=== PATIENT | female | born 1935 | race Caucasian/White ===

== ENCOUNTER → 2016-10-21 | Outpatient (CLI) | payer OTHER | LOC: CAT 12:59 | DX: R10.9 Unspecified abdominal pain (principal); M51.36 Other intervertebral disc degeneration, lumbar region; M51.37 Other intervertebral disc degeneration, lumbosacral region ==

== ENCOUNTER → 2017-04-26 | Outpatient (CLI) | payer OTHER | LOC: ULTRA 07:47 | DX: R10.13 Epigastric pain (principal) ==

== ENCOUNTER → 2018-09-06 | Outpatient (CLI) | payer OTHER | LOC: NUC 08-30 03:42 → RAD 08-30 13:17 → NUC 08-30 13:26 | DX: Z12.31 Encounter for screening mammogram for malignant neoplasm of breast (principal); M81.0 Age-related osteoporosis without current pathological fracture; M85.80 Other specified disorders of bone density and structure, unspecified site ==

== ENCOUNTER → 2019-04-06 | Outpatient (CLI) | payer OTHER | LOC: MRI 13:37 | DX: M47.812 Spondylosis without myelopathy or radiculopathy, cervical region (principal); M43.12 Spondylolisthesis, cervical region; M50.31 Other cervical disc degeneration, high cervical region; M48.02 Spinal stenosis, cervical region; M12.88 Other specific arthropathies, not elsewhere classified, other specified site ==

== ENCOUNTER → 2019-05-03 | Outpatient (CLI) | payer OTHER ==
[~2019-05-03] VITALS: Ht 160 cm; Wt 62.1 kg
[~2019-05-03] MED LIST: ARTHRITIS PAIN650 M3 PO; CYMBALTA30 MG PO; DELSYM COU30 MG/5 M1 PO; DOLOGEN CAPLET1 EACH PO; ENTOCORT EC 3 MG3 MG PO; ESTRACE42.5 GM VAG; IRON325 M1 PO; NEXIUM20 MG PO; NORVASC5 M1 PO; QUALAQUIN324 MG PO; SYSTANE 0.3-0.415 ML OPHTHALMIC; TRAZODONE HCL50 MG PO; VITAMIN B12-FO1 EAC1 PO; VITAMIN D32000 UNI2 PO; VOLTAREN GEL 1100 G2 TOP; ZOCOR20 MG PO; ZYRTEC10 M5 PO
[2019-05-03 10:03] VITALS: BP 158/98
--- NOTE | 2019-05-03 10:42 | NUR ---
Pain Clinic Assessment: 1. History of Osteoarthritis: JOINTS History of Rheumatoid Arthritis: Not Applicable 2. Height: 5 ft. 3 in. 160.0 cm. Weight: 137.0 lb. oz. 62.143 kg. Patient's BMI: 24.3 3. Vital Signs: BP: 158/98 Pulse: 84 Resp: 16 Temp: 02 Sat: 96 ECG Mon: 4. Pain Intensity: 4-5 5. Fall Risk: Dizziness: Y Needs help standing or walking: N Fallen in the last 3 months: N Fall risk comments: 6. Patient on Blood Thinner: None 7. History of Hypertension: Y 8. Opioid Therapy greater than 6 weeks: N Opiate Contract Signed: 9. Risk Assessment Tool Provided: 1-LOW 10. Functional Assessment Tool: 11. Recreational Drug Use: Never Drug Type: Tobacco Use: Never Smoker Tobacco Type: Amount or Packs/day: How Many Years: Alcohol Use: Yes Frequency: Weekly Quant: 7
--- NOTE | 2019-05-24 12:08 | HPC ---
[facility] [address] [place] [address] PAIN MANAGEMENT CONSULTATION Name: HERON SEALS Room #: REG [facility] M.R.#: [id number] Admission: 05/03/19 Attend Phys: Gustavo Vee MD Discharge: Date of : 34 Report #: [id number] THIS REPORT FOR: cc: Zander Parish MD,Zander Vee,Gustavo Garcia MD ~ CC: Zander Vee DATE OF SERVICE: 05/03/2019 CHIEF COMPLAINT: Left side cervical pain with radiation into the occiput. The patient is a delightful 84-year-old who is here today at the request of Dr. Zander Parish. She has had pain dating back a couple of years in her neck. The pain radiates along the left side of the neck into the occiput and occasionally down into the shoulder, but it does not go much below the upper shoulder. She does not have radicular like symptoms. She denies numbness, tingling or weakness. She is taking only Tylenol and occasional Advil with modest relief. Pain is described as aching, sometimes shooting sensation. Intensity score 4-5/10. MEDICATIONS: Amlodipine, trazodone, simvastatin, Qualaquin, Cymbalta, estradiol cream, Nexium, Voltaren, vitamin D3, iron, Tylenol 650 two p.r.n. up to 4 times daily, Zyrtec. ALLERGIES: KEFLEX, DOXYCYCLINE, METRONIDAZOLE, WHICH CAUSES RASH, PENICILLIN AND SULFA. PAST MEDICAL HISTORY: Depression, fibromyalgia, hypertension, peripheral neuropathy, cerebellar degeneration and reported cognitive impairment. She has osteopenia by DEXA bone testing. SOCIAL HISTORY: She lives independently in the [facility], drives her own car. 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 Her social life has been curtailed somewhat over the last 4-5 years as "my friends have been dying off." She has 6 children who are supportive. She denies use of tobacco, drinks one glass of wine nightly and has enjoyed it for decades. She is . REVIEW OF SYSTEMS: Positive for fatigue and weakness, occasional constipation, history of peptic ulcer. She has a history of some incontinence and dribbling with urination, occasional headaches, occipital, generally to the right. [facility] [address] [place] [address] PAIN MANAGEMENT CONSULTATION Name: HERON SEALS Room #: REG CLI [facility]#: [id number] Admission: 05/03/19 Attend Phys: Gustavo Vee MD Discharge: Date of : 34 Report #: [id number] PHYSICAL EXAMINATION: GENERAL: She is a foster 84-year-old pleasant, alert and oriented with good memory. VITAL SIGNS: Blood pressure is 158/98, heart rate 84, respirations 16, O2 sat is 100. Her BMI is 24.3. She can independently move from sitting to standing position. Her gait is stable, and she does not appear to be a fall risk. HEENT: Reveals pupils to be small, equal, reactive to light. EOMs are intact. Mucous membranes are moist. NECK: Shows restrictions primarily in lateral tilt and rotation to the left, which exacerbates pain along the left side of the neck and up into the occiput and shoulder. There is no contralateral spread. CHEST: Clear to auscultation. CARDIAC: Rhythm was regular, without audible murmur or arrhythmia. MUSCULOSKELETAL: Examination of reflexes reveals diminished reflexes in the upper extremities, trace to 1+ biceps, triceps and brachioradialis. Reflexes in the lower extremity also diminished to trace at knee and ankle. IMAGING: X-ray is reviewed. The MRI of the cervical spine dated 04/06/2019 shows no focal disk herniations, but multiple levels of disk degenerative disease. There is multilevel [id number] primarily left-sided facet arthropathy, which does cause some neural foraminal narrowing at several levels, worse at C3-C4, C4-C5, and C5-C6. IMPRESSION: Cervical spondylosis with left-sided mechanical pain consistent with MRI. RECOMMENDATIONS: We have had good success with simple facet injections performed under fluoroscopic guidance and I would be happy to perform this today hoping for extended relief. Further injections could be provided depending on duration of response. Radiofrequency ablation is consideration as well. We will try and avoid medications that may be harmful to her. PROCEDURE: After informed consent, she was taken to fluoroscopic suite, placed prone, skin prepped with ChloraPrep. Skin anesthetized on the left. Using biplanar fluoroscopic views, I carefully advanced 25-gauge needle into position, first at C3-C4, then C4-C5 and then C5-C6. Using AP and lateral views, I gently injected 0.25 mL of Omnipaque at each level, demonstrating spread along the capsule and some intra-articular spread at C3-C4. This was then followed at each level with 0.5 of 1 mL, 0.5% bupivacaine mixed with 4 mg of dexamethasone. She tolerated the procedure well. There were no complications. She was observed in recovery room for about 45 minutes and discharged without any side effects or complications. Pain score was 0 at discharge. [address] [address] PAIN MANAGEMENT CONSULTATION Name: HERON SEALS Room #: REG [facility].#: [id number] Admission: 05/03/19 Attend Phys: Gustavo Vee MD Discharge: Date of : 34 Report #: [id number] Follow up as needed. <ELECTRONICALLY SIGNED> By: Gustavo Vee MD 05/24/19 1208 [id number] 1823 Gustavo Vee MD /nt
== END | disposition home or self-care (01) ==
LOC: PAIN 06:57
DX: M47.812 Spondylosis without myelopathy or radiculopathy, cervical region (principal); M54.2 Cervicalgia; F32.9 Major depressive disorder, single episode, unspecified; M79.7 Fibromyalgia; I10 Essential (primary) hypertension; G62.9 Polyneuropathy, unspecified; M85.80 Other specified disorders of bone density and structure, unspecified site; M19.90 Unspecified osteoarthritis, unspecified site; G43.909 Migraine, unspecified, not intractable, without status migrainosus; Z98.890 Other specified postprocedural states; Z79.899 Other long term (current) drug therapy; Z90.710 Acquired absence of both cervix and uterus; Z88.2 Allergy status to sulfonamides; Z98.41 Cataract extraction status, right eye; Z98.42 Cataract extraction status, left eye; Z96.651 Presence of right artificial knee joint; Z88.0 Allergy status to penicillin; Z88.8 Allergy status to other drugs, medicaments and biological substances

== ENCOUNTER → 2019-09-28 | Outpatient (CLI) | payer OTHER | LOC: ULTRA 09:34 | PROVIDERS: ATTEND Internal Medicine | DX: K76.89 Other specified diseases of liver (principal) ==

== ENCOUNTER → 2019-10-04 | Day surgery (SDC) | payer OTHER ==
[~2019-10-04] MED LIST changes: +ARICEPT10 MG PO; +CARDIO TABS PO; +COLESTIPOL HCL1 G1 PO; +DULOXETINE HCL60 MG PO; +[UNRECOGNIZED DRUG - REMARK] PO
== END | disposition home or self-care (01) ==
LOC: LAB 09:52
PROVIDERS: ATTEND Student in an Organized Health Care Education/Training Program
DX: Z01.812 Encounter for preprocedural laboratory examination (principal); Z11.59 Encounter for screening for other viral diseases; R10.13 Epigastric pain; Z79.899 Other long term (current) drug therapy; Z88.0 Allergy status to penicillin; Z88.2 Allergy status to sulfonamides

== ENCOUNTER → 2019-10-08 | Outpatient (CLI) | payer OTHER ==
[~2019-10-08] VITALS: Ht 160 cm; Wt 61.2 kg
--- NOTE | 2019-10-11 09:20 | P ---
[facility] [place] [address] [place] [address] PROCEDURE REPORT Name: HERON SEALS Room #: REG [facility].#: [id number] Admission: 10/08/19 Attend Phys: Zander Ralph MD Discharge: Date of : 34 Report #: [id number] THIS REPORT FOR: cc: Zander Parish MD,Zander Ralph,Zander Cantrell MD ~ CC: Zander Ralph BRIEF HISTORY: The patient is an 84-year-old woman with complaints of epigastric pain. She has a prior history of peptic ulcer disease. She had a recent ultrasound of the abdomen, which was unremarkable. Her gallbladder remains in place. PREOPERATIVE DIAGNOSIS: Epigastric pain. POSTOPERATIVE DIAGNOSES: 1. Mild diffuse erythematous gastritis. 2. Small hiatus hernia. 3. Mild Schatzki ring. MEDICATIONS: Deep sedation with propofol per anesthesia. SPECIMEN: None. ESTIMATED BLOOD LOSS: 3 mL. PROCEDURE: EGD and Peter dilation. FINDINGS: Prior to propofol sedation, procedure of upper endoscopy was discussed with the patient as well as potential risks and its complications. She indicates she understands and desires to proceed. DESCRIPTION OF PROCEDURE: With the patient in left lateral decubitus position, the Olympus video endoscope was inserted in the cervical esophagus under direct vision without difficulty. Examination of this organ through its entire length revealed normal esophageal mucosa down the squamocolumnar junction. The squamocolumnar junction was intact. There was no evidence of ulcers, erosions or esophagitis. Intermittently, a mild Schatzki ring was seen. It is noted she has had some symptoms of dysphagia. A small 2 cm sliding type hiatus hernia was seen as well. The mucosa and hernia was unremarkable. The scope was advanced into the stomach, was examined on end view as well as retroflexed views. There was erythema in the antrum. However, no ulcers or erosions were seen. Previous biopsies were negative for H. pylori and those were not repeated today. Upon retroflexion, the hiatus hernia was seen as well as a Schatzki ring, but no other abnormalities were identified. The pylorus was unremarkable. Duodenal [facility] [address] [place] [address] PROCEDURE REPORT Name: HERON SEALS Room #: REG [facility].#: [id number] Admission: 10/08/19 Attend Phys: Zander Ralph MD Discharge: Date of : 34 Report #: [id number] bulb was unremarkable. Postbulbar duodenal sweep was inspected and noted to be unremarkable. At that point, the scope was slowly withdrawn and careful circumferential views confirmed the above findings. The patient tolerated the procedure well. Subsequently, the patient was dilated with passage of 50-Burmese Peter dilator. There was no resistance. CONDITION OF THE PATIENT UPON DISCHARGE: Following the procedure, the patient was drowsy, aroused, conversant and will be discharged home when fully ambulatory. INSTRUCTIONS TO THE PATIENT AND FAMILY AT THE TIME OF DISCHARGE: The patient continues with epigastric pain. She has been on a PPI and reports pain is not resolved. Recent ultrasound was unremarkable. Looking through the database in the radiology section here at [facility], it is noted she did have a Doppler study about 2 years ago, which revealed a borderline elevated velocities in the celiac axis. However, she does not clearly describe postprandial worsening of symptoms with pain. Another consideration would be to proceed with a CT angio to evaluate mesenteric vascular disease. A PIPIDA scan may be a consideration as well, although her symptoms are somewhat atypical. Her symptoms may be related to nonulcer dyspepsia. At this point in life and at age 84, I would avoid anticholinergic agents such as dicyclomine or hyoscyamine. We can give an empiric trial of sucralfate to see if that helps her symptoms. She is to follow up with Dr. Zander Parish. If her symptoms persist, further evaluation as noted above may be a consideration. In addition, she reports she has had some constipation symptoms as well. This possibly could be a contributing factor as well. I have suggested she uses MiraLax on a daily basis. A trial off of iron and also colestipol may be helpful with regards to constipation, <ELECTRONICALLY SIGNED> By: Zander Ralph MD 10/11/19 0920 [id number] 1209 Zander Ralph MD /nt
== END | disposition home or self-care (01) ==
LOC: GI 08:15 → EDSTATUS 10:13 → GI 10:39
PROVIDERS: ATTEND Specialist
DX: R10.13 Epigastric pain (principal); K29.70 Gastritis, unspecified, without bleeding; K22.2 Esophageal obstruction; K44.9 Diaphragmatic hernia without obstruction or gangrene; I10 Essential (primary) hypertension; E78.5 Hyperlipidemia, unspecified; F32.9 Major depressive disorder, single episode, unspecified; M19.90 Unspecified osteoarthritis, unspecified site; M85.80 Other specified disorders of bone density and structure, unspecified site; M79.7 Fibromyalgia; G62.9 Polyneuropathy, unspecified; G43.909 Migraine, unspecified, not intractable, without status migrainosus; Z98.890 Other specified postprocedural states; Z79.899 Other long term (current) drug therapy; Z90.710 Acquired absence of both cervix and uterus; Z85.828 Personal history of other malignant neoplasm of skin; Z98.41 Cataract extraction status, right eye; Z98.42 Cataract extraction status, left eye; Z96.651 Presence of right artificial knee joint; Z87.19 Personal history of other diseases of the digestive system; Z88.0 Allergy status to penicillin; Z88.2 Allergy status to sulfonamides
CPT/HCPCS: 62110; 62900

== ENCOUNTER → 2019-10-30 | Outpatient (CLI) | payer OTHER ==
[2019-10-30 11:03] LABS: CREATININE 0.7 mg/dL (0.6-1.0)
== END ==
LOC: CAT 07:56 → NUC 07:56
PROVIDERS: ATTEND Internal Medicine
DX: K57.30 Diverticulosis of large intestine without perforation or abscess without bleeding (principal); R10.11 Right upper quadrant pain; R41.89 Other symptoms and signs involving cognitive functions and awareness

== ENCOUNTER → 2019-11-08 | Outpatient (CLI) | payer OTHER | LOC: SJCVC 16:28 | PROVIDERS: ATTEND Internal Medicine Cardiovascular Disease | DX: R94.31 Abnormal electrocardiogram [ECG] [EKG] (principal); R53.83 Other fatigue; I21.29 ST elevation (STEMI) myocardial infarction involving other sites; R07.9 Chest pain, unspecified; E78.00 Pure hypercholesterolemia, unspecified; I25.2 Old myocardial infarction; I10 Essential (primary) hypertension; F32.9 Major depressive disorder, single episode, unspecified; M85.80 Other specified disorders of bone density and structure, unspecified site; Z90.710 Acquired absence of both cervix and uterus; Z98.890 Other specified postprocedural states; Z79.899 Other long term (current) drug therapy ==

== ENCOUNTER → 2019-11-14 | Outpatient (CLI) | payer OTHER | LOC: SJCVCIMAG 11:26 | PROVIDERS: ATTEND Internal Medicine Cardiovascular Disease | DX: I08.8 Other rheumatic multiple valve diseases (principal); I11.9 Hypertensive heart disease without heart failure; E78.5 Hyperlipidemia, unspecified; R07.9 Chest pain, unspecified; R94.31 Abnormal electrocardiogram [ECG] [EKG] ==

== ENCOUNTER → 2019-11-15 | Outpatient (CLI) | payer OTHER | LOC: SJCVCIMAG 07:09 | PROVIDERS: ATTEND Internal Medicine Cardiovascular Disease | DX: I49.3 Ventricular premature depolarization (principal) ==

== ENCOUNTER → 2019-12-03 | Outpatient (CLI) | payer OTHER | LOC: MRI 11-16 16:10 | PROVIDERS: ATTEND Internal Medicine | DX: N28.1 Cyst of kidney, acquired (principal); M51.36 Other intervertebral disc degeneration, lumbar region; K76.89 Other specified diseases of liver ==

== ENCOUNTER → 2020-06-04 | Outpatient (CLI) | payer OTHER | LOC: SJCVC 11:01 | PROVIDERS: ATTEND Internal Medicine Cardiovascular Disease | DX: R94.31 Abnormal electrocardiogram [ECG] [EKG] (principal); I10 Essential (primary) hypertension; E78.00 Pure hypercholesterolemia, unspecified; R53.83 Other fatigue; R07.9 Chest pain, unspecified; F32.9 Major depressive disorder, single episode, unspecified; G62.9 Polyneuropathy, unspecified; M85.88 Other specified disorders of bone density and structure, other site; Z72.89 Other problems related to lifestyle; Z79.899 Other long term (current) drug therapy; Z88.0 Allergy status to penicillin ==

== ENCOUNTER → 2021-01-05 | Outpatient (CLI) | payer OTHER | LOC: NUC 10:17 | PROVIDERS: ATTEND Internal Medicine | DX: K31.84 Gastroparesis (principal); R11.2 Nausea with vomiting, unspecified ==